=== PATIENT | male | born 1985 | race Caucasian/White ===

== ENCOUNTER 2022-02-17 11:47 | Emergency (ER) | payer SELFPAY ==
[~2022-02-17] VITALS: Ht 198.1 cm; Wt 87.1 kg
[2022-02-17] MEDS ORDERED: HYDROCODONE/APAP 5-325MG TABLET PO ONE (12:00)
[2022-02-17] MEDS ORDERED: HYDROCODONE/APAP 5-325MG TABLET ONE (12:01)
--- NOTE | 2022-02-17 13:31 | NUR ---
Applied Knee immoblizer to Rt knee per Md order.
--- NOTE | 2022-02-17 14:07 | NUR ---
Patient discharged to home in stable condition. Written and verbal after care instructions given. Patient verbalizes understanding of instructions. Stressed follow up or return to ER for worsening s/s.
== END 2022-02-17 14:08 | disposition home or self-care (01) ==
LOC: ER 11:47
DX: M25.561 Pain in right knee (principal); M25.461 Effusion, right knee; S83.004D Unspecified dislocation of right patella, subsequent encounter; X50.9XXD Other and unspecified overexertion or strenuous movements or postures, subsequent encounter
CPT/HCPCS: 73590; A4663

== ENCOUNTER 2023-03-31 20:23 | Emergency (ER) | payer MEDICAID, OTHER ==
[~2023-03-31] VITALS: Ht 198.1 cm; Wt 80.7 kg
[2023-03-31 20:55] VITALS: O2SAT 98
[2023-03-31] MEDS ORDERED: HYDROMORPHONE 2 MG/1 ML DISP.SYRIN ONE (21:40)
[2023-03-31] MEDS ORDERED: ONDANSETRON HCL 4 MG TABLET ONE (21:40)
[2023-03-31] MEDS ORDERED: KETOROLAC TROMETHAMINE 60 MG INJ IM ONE ×2 (21:40→21:45)
[2023-03-31] MEDS ORDERED: ONDANSETRON HCL 4 MG TABLET PO ONE (21:45)
[2023-03-31] MEDS ORDERED: HYDROMORPHONE 1 MG/1 ML DISP.SYRIN IM ONE (21:45)
[2023-03-31] MEDS ORDERED: HYDR-3980 PO (22:18)
[2023-03-31] MEDS ORDERED: KETO10TA2 PO (22:18)
== END 2023-03-31 22:57 | disposition home or self-care (01) ==
LOC: ER 20:25
DX: M25.561 Pain in right knee (principal); Z79.899 Other long term (current) drug therapy; W18.39XA Other fall on same level, initial encounter; Y93.89 Activity, other specified; Y92.89 Other specified places as the place of occurrence of the external cause; Y99.8 Other external cause status
CPT/HCPCS: 99284; 96372 ×2; J1885; J1170; A4606; A4663; Q0162

== ENCOUNTER 2024-06-22 11:42 | Emergency (ER) | payer OTHER ==
[~2024-06-22] VITALS: Ht 198.1 cm; Wt 81.6 kg
[~2024-06-22 11:42] MED LIST: HYDR-3980 PO; KETO10TA2 PO
[2024-06-22] MEDS ORDERED: CLINDAMYCIN 600 MG PIGGYBACK**ER OMNI IV ONE (20:05)
[2024-06-22] MEDS: CLINDAMYCIN PHOSPHATE IV 600 MG in IV DEXTROSE 5% 100 ML IV ONE (20:10)
[2024-06-22 20:36] LABS: BASOPHILS % (AUTO) 0.3 % (0.0-2.0); EOSINOPHILS # (AUTO) 0.1 K/uL (0.0-0.7); EOSINOPHILS % (AUTO) 0.9 % (0.0-7.0); HEMATOCRIT 40.8 % (36.7-47.1); HEMOGLOBIN 13.9 g/dL (12.5-16.3); LYMPHOCYTES # (AUTO) 1.2 K/uL (0.8-4.8); LYMPHOCYTES % (AUTO) 13.8 % (20.5-51.5); MEAN CORPUSCULAR HEMOGLOBIN 26.6 uug (23.8-33.4); MEAN CORPUSCULAR HGB CONC 34 g/dL (32.5-36.3); MEAN CORPUSCULAR VOLUME 77.9 fL (73.0-96.2); MONOCYTES # (AUTO) 0.4 K/uL (0.1-1.30); MONOCYTES % (AUTO) 4.8 % (0.0-11.0); NEUTROPHILS # (AUTO) 7.1 K/uL (1.8-8.9); NEUTROPHILS % (AUTO) 80.2 % (38.5-71.5); PLATELET COUNT (AUTO) 286 K/uL (152-348); RED BLOOD CELL COUNT(AUTO) 5.24 MIL/uL (4.06-5.63); RED CELL DISTRIBUTION WIDTH 14.1 % (12.1-16.2); WHITE BLOOD COUNT (AUTO) 8.9 K/uL (3.6-10.2)
[2024-06-22] MEDS ORDERED: IOHEXOL 300MG/ML 100 ML INFUS..BTL ONE (20:37)
[2024-06-22] MEDS ORDERED: SWABABLE VALVE TRANSFER SET EA MC ONE (20:37)
[2024-06-22] MEDS ORDERED: IV NORMAL SALINE 250 ML IV ONE (20:37)
[2024-06-22 21:08] LABS: BILIRUBIN,TOTAL 0.9 mg/dL (0.2-1.0); CALCIUM 8.8 mg/dL (8.5-10.1); CREATININE 0.8 mg/dL (0.6-1.3); POTASSIUM 3.8 mmol/L (3.5-5.1); TOTAL PROTEIN, SERUM 8.3 g/dL (6.4-8.2)
[2024-06-22 21:22] LABS: DIFFERENTIAL COMMENT 1
[2024-06-22 21:44] LABS: *BILIRUBIN,URIN NEGATIVE (NEGATIVE); *BLOOD, URINE NEGATIVE (NEGATIVE); *CLARITY,URINE CLEAR (CLEAR); *COLOR,URINE YELLOW (YELLOW); *KETONES,URINE NEGATIVE (NEGATIVE); *PROTEIN,URINE NEGATIVE (NEGATIVE); *UROBILINOGEN,URINE 0.2 E.U./dl (NORMAL); LEUKOCYTE ESTERASE ,URINE 1+ (NEGATIVE); NITRITE, URINE NEGATIVE (NEGATIVE); UGLUCOSE NEGATIVE (NEGATIVE)
[2024-06-22] MEDS ORDERED: HYDROCODONE/APAP 10-325 MG TABLET ONE (21:47)
[2024-06-22] MEDS: HYDROCODONE/APAP 10-325 MG TABLET PO ONE (21:50)
[2024-06-22] MEDS ORDERED: CLIN-118 PO (21:58)
[2024-06-22] MEDS ORDERED: MUPI22OI2 TP (21:58)
[2024-06-22 22:26] LABS: *AMPHETAMINE, URINE NEGATIVE (NEGATIVE); *BARBITURATE, URINE NEGATIVE (NEGATIVE); *BENZODIAZEPINE, URINE NEGATIVE (NEGATIVE); *CANNABINOID, URINE POSITIVE (NEGATIVE); *COCCAINE, URINE NEGATIVE (NEGATIVE); *OPIATE, URINE NEGATIVE (NEGATIVE); *PHENCYCLIDINE SCREEN,URINE NEGATIVE (NEGATIVE); FENTANYL, URINE NEGATIVE (NEGATIVE)
[2024-06-22 22:30] VITALS: BP 110/85; TEMP 98; O2SAT 99
[2024-06-22 22:34] LABS: BACTERIA,URINE FEW /HPF (NONE SEEN); SQUAMOUS EPITHELIAL CELL,UR FEW /HPF (NONE SEEN); WBC,URINE 50-80 /HPF (0-3)
== END 2024-06-22 22:31 | disposition home or self-care (01) ==
LOC: ER 11:42
DX: L02.01 Cutaneous abscess of face (principal); L03.211 Cellulitis of face; R22.0 Localized swelling, mass and lump, head; R51.9 Headache, unspecified
CPT/HCPCS: 99285; 96365; 70487; 80053; 85025; 87040; 36415; 76536; 87086; 80307; 81001; J3490 ×2; Q9967; A4606; A4663

== ENCOUNTER 2024-06-23 00:32 | Emergency (ER) | payer OTHER ==
[~2024-06-23] VITALS: Ht 198.1 cm; Wt 81.6 kg
[~2024-06-23 00:32] MED LIST changes: +CLIN-118 PO; +MUPI22OI2 TP
[2024-06-23] MEDS ORDERED: LIDOCAINE HCL 1% 20 ML VIAL ONE (01:54)
[2024-06-23] MEDS: LIDOCAINE HCL 1% 20 ML VIAL IJ ONE (02:04)
[2024-06-23] MEDS ORDERED: HYDROCODONE/APAP 10-325 MG TABLET ONE (02:34)
[2024-06-23] MEDS: HYDROCODONE/APAP 10-325 MG TABLET PO ONE (02:40)
[2024-06-23 03:00] VITALS: BP 110/67; TEMP 98; O2SAT 100
== END 2024-06-23 03:00 | disposition home or self-care (01) ==
LOC: ER 00:48
DX: L02.01 Cutaneous abscess of face (principal); Z88.7 Allergy status to serum and vaccine
CPT/HCPCS: 99283; 10060; J3490; A4606; A4663

== ENCOUNTER 2024-06-25 12:20 | Emergency (ER) | payer OTHER ==
[~2024-06-25] VITALS: Ht 198.1 cm; Wt 81.6 kg
[2024-06-25 12:24] VITALS: O2SAT 98
== END 2024-06-25 12:59 | disposition home or self-care (01) ==
LOC: ER 12:20
DX: L02.01 Cutaneous abscess of face (principal); Z88.7 Allergy status to serum and vaccine
CPT/HCPCS: A4606; A4663